=== PATIENT | female | born 1965 | race Caucasian/White ===

== ENCOUNTER 2025-05-12 09:14 | Outpatient (AMB) | payer MEDICAID, SELFPAY ==
--- NOTE | 2025-05-12 09:53 | ORTHONT_ITS ---
Vital signs 05/12/25 09:58 Height 1.68 m Height Method Stated Weight 86.211 kg Weight Measurement Method Standing Scale BMI 30.7 BP 133/80 H Blood Pressure Source Automatic Cuff Blood Pressure Location Left Upper Arm Position Sitting Respiration 18 Pulse 78 Pulse Source Monitor Temp 97.6 F Temp Source Temporal Artery Scan Pulse Oximetry (%) 97 Oxygen Delivery Method Room Air Med/Allergies Allergies & Medications Allergies No Known Allergies Allergy (Verified 05/12/25 09:59) Medication Reconciliation levothyroxine 112 mcg tablet 112 mcg PO QDAY 04/30/18 [History Confirmed 05/12/25] Exam Exam Patient is in no acute distress and is cooperative with the examination today. Breathing is nonlabored. Patient has a normal mood and affect. Bilateral extremities were evaluated and demonstrates sensation intact to light touch. Palpable pedal pulses are present. No significant edema is present. Bilateral hips were examined. The patient has no pain with log roll of the hips. Internal rotation to 30 degrees and external rotation to 30 degrees is painless. Negative FADIR. Right knee was examined today. The right knee is in reasonable alignment. Range of motion from 0-120 degrees. Knee is stable to varus and valgus as well as AP translation with <5mm. Patient has a negative McMurrays. There is no pain with patellofemoral compression and no crepitus noted. The knee is nontender to palpation. Left knee was examined today. The left knee is in valgus alignment. Range of motion from 0-115 degrees. Knee is stable to varus and valgus as well as AP translation with <5mm. Patient has a negative McMurrays. There is no pain with patellofemoral compression and no crepitus noted. The knee is tender to palpation laterally and anteriorly RESULTS Imaging - MRI of the left knee: 08/16/2024, Full thickness cartilage loss of the patella and femoral trochlea as well as a complex tear of the anterior horn of the lateral meniscus. Assessment and Plan Problem List (1) Arthritis of left knee: Status: Acute Plan: ASSESSMENT AND PLAN 1. Left knee pain: The patient has been experiencing left knee pain for 6 months. An MRI dated 08/16/2024 shows full-thickness cartilage loss of the patella and femoral trochlea, and a complex tear of the anterior horn of the lateral meniscus. She reports that the pain worsens with walking and has not had any injections or physical therapy. Due to her renal issues, meloxicam is not recommended. An injection will be administered to the left knee today to help alleviate the pain and inflammation. Bilateral knee x-rays have been ordered to further evaluate her condition. The patient was advised to continue using Tylenol for pain management and avoid NSAIDs due to her renal issues. The risks and benefits of the injection were discussed, including potential side effects such as infection, bleeding, and temporary increase in pain. She was informed that the goal of the injection is to reduce inflammation and provide pain relief. Lifestyle modifications such as avoiding activities that exacerbate the pain and considering physical therapy were recommended. Recommend knee cortisone injection as patient would like to proceed with conservative treatment at this time. The risks and benefits of the procedure were reviewed with the patient and patient gave verbal consent to continue with the procedure. Procedure: performed by Dr. Gavin Using sterile technique the left knee was thoroughly prepped with alcohol, and approximately 1 cc of Depo-Medrol 80mg/mL and 4 cc of 0.2% ropivacaine was injected without resistance into the medial tibial femoral joint space. The patient tolerated the procedure. Office Procedures GNS Level of Care Nursing/Assessment Patient Status: Initial/New Patient Nursing Assessment/Reassesment: Medication Reconciliation, Update PMH in EMR and Vital Signs Coordination of Care: Complex Care and Chronic Disease 1-5, Education Complex Pt/Fam, Consent,records obtained, informed consent, 1 Ins Authorization, Lab and Imaging orders, Results/Orders obtained and Staff clarify orders Special Needs: Language special needs New Patient Charge New Patient Point Assignment: 1124 New Patient Point Charge: SYBASE DEVELOPER Level 4 ([id number]) Surgical Proc/IM SQ injection Minor Surgical Procedure: Yes (LEFT KNEE INJECTION) Medication Given Medication Given Medication Given: Yes Documented Dose Given: 1 Route: Infiitration Medication Given Medication Given Medication Given: Yes Documented Dose Given: 4 Route: Infiitration Office Meds methylprednisolone acetate 80 mg/mL suspension for injection Performing Provider: Rolando Gavin MD Performing Location: [facility] Administered by: Rolando Gavin MD on 05/12/25 10:55 Dose Route Admin Location Dispensed Lot Number Expiration Date Pack age [facility] [employer] 80 mg intra-articular 1 mL [id number] 01/07/27 [address]-0 [id number] [employer] ropivacaine (PF) 2 mg/mL (0.2 %) injection solution Performing Provider: Rolando Gavin MD Performing Location: [facility] Administered by: Rolando Gavin MD on 05/12/25 10:55 Dose Route Admin Location Dispensed Lot Number Expiration Date Pack age NDC NDC [employer] Curator 20 mL Infiltration 20 mL [id number] 07/10/27 53148-205-40 [id number] [facility] Intake Visit Data Collection New Patient or Established: New Patient (never been to [facility]) Reason for Visit:: LEFT KNEE PAIN Seen by Clinical Staff ONLY (RN/MA): No Vat Skimmer Required: Yes PCP or OBGYN visit in last 3 months: Yes Hx Now: No Do You Feel Safe at Home: Yes Authorities Contacted: N/A Questionairres Past Medical History Past Medical History Have you ever been diagnosed with any of the following: Neurological Problems Seizures: No Cardiology Problems Congestive Heart Failure: No Respiratory Problems Chronic Obstructive Pulmonary Disease (COPD): No Genital/Urinary Problems Renal Disease: No Reproductive Problems Breast Cancer: Yes (left) Previous Pregnancies: Yes (3) Endocrine Problems Diabetes Mellitus Type 1: No Diabetes Mellitus Type 2: No Hypothyroidism: Yes Other Problems Blood Transfusions: No Blood Transfusion Reaction: No Anesthesia Reactions: Yes (slow to wake up) Chemotherapy: Yes Radiation Therapy: Yes Chicken Pox: Yes Subjective Visit Visit for: new patient and knee (LEFT) Immunization / Flu Flu Vaccine in the Last 12 Months: Yes Flu Vaccine Exclusion Criteria: Already Received History of Present Illness Chief complaint: LEFT KNEE PAIN Date of injury / onset of symptoms: 1 MAURICIO HISTORY OF PRESENT ILLNESS I, Rolando Gavin, have obtained verbal consent from the patient, to be recorded during this encounter which may include, but not limited to, medical history, examination, treatment plans, and relevant health information.? Patient was informed that recording will be read and reviewed by myself before inclusion in the medical chart. The patient is a 58-year-old female who presents for evaluation of left knee pain. She has been experiencing persistent left knee pain for the past year, which intensifies during ambulation. The pain is localized to the medial aspect of her knee and extends to her calf. She also reports occasional swelling in the affected area. She has not received any injections or undergone physical therapy for this condition. Her current analgesic regimen includes Tylenol. She has renal issues. She was last seen on 08/16/2024 for an MRI, which demonstrated full thickness cartilage loss of the patella and femoral trochlea as well as a complex tear of the anterior horn of the lateral meniscus. 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
[2025-05-12 09:58] VITALS: BP 133/80; PULSE 78; RESP 18; TEMP 36.4; O2SAT 97; BMI 30.7
--- NOTE | 2025-05-12 10:13 | XR_ITS ---
EXAMINATION: Bilateral knees 2 views Right lateral knee left lateral knee 2 views Bilateral Axuni single view TECHNIQUE: Bilateral AP knees standing single view, bilateral PA knees standing single view flexion Standing right lateral knee left lateral knee 2 views Bilateral Axuni single view total 5 views Date and time: May 12, 2025, 1025 hours INDICATIONS: Knee pain months FINDINGS: Moderate narrowing medial joint spaces Moderate narrowing lateral joint spaces Bilateral advanced narrowing patellofemoral joints No fractures Significant osteopenia IMPRESSION: Moderate narrowing medial lateral joint spaces Advanced narrowing patellofemoral joint
== END 2025-05-12 10:18 | disposition home or self-care (01) ==
PROVIDERS: Supervising Provider Orthopaedic Surgery Adult Reconstructive Orthopaedic Surgery; Visit Provider Orthopaedic Surgery Adult Reconstructive Orthopaedic Surgery
DX: M25.562 Pain in left knee (principal); M17.12 Unilateral primary osteoarthritis, left knee
CPT/HCPCS: 20610; 73564; 99204; J1010; J2795; G0463

== ENCOUNTER 2025-05-28 10:30 | Outpatient (AMB) | payer MEDICAID, SELFPAY ==
[2025-05-28 10:49] VITALS: BP 138/76; PULSE 76; RESP 18; TEMP 36.4; O2SAT 97
--- NOTE | 2025-05-28 10:49 | PD.ORTHCLVIS ---
Vital signs 05/28/25 10:49 Height 1.68 m Height Method Stated Weight 84.907 kg Weight Measurement Method Standing Scale BMI 30.0 BP 138/76 H Blood Pressure Source Automatic Cuff Blood Pressure Location Left Upper Arm Position Sitting Respiration 18 Pulse 76 Pulse Source Monitor Temp 97.6 F Temp Source Temporal Artery Scan Pulse Oximetry (%) 97 Oxygen Delivery Method Room Air Med/Allergies Allergies & Medications Allergies No Known Allergies Allergy (Verified 05/28/25 10:50) Medication Reconciliation levothyroxine 112 mcg tablet 112 mcg PO QDAY 04/30/18 [History Confirmed 05/28/25] Exam Exam Patient is in no acute distress and is cooperative with the examination today. Breathing is nonlabored. Patient has a normal mood and affect. Bilateral extremities were evaluated and demonstrates sensation intact to light touch. Palpable pedal pulses are present. No significant edema is present. Bilateral hips were examined. The patient has no pain with log roll of the hips. Internal rotation to 30 degrees and external rotation to 30 degrees is painless. Negative FADIR. Right knee was examined today. The right knee is in reasonable alignment. Range of motion from 0-120 degrees. Knee is stable to varus and valgus as well as AP translation with <5mm. Patient has a negative McMurrays. There is no pain with patellofemoral compression and no crepitus noted. The knee is nontender to palpation. Left knee was examined today. The left knee is in valgus alignment. Range of motion from 0-115 degrees. Knee is stable to varus and valgus as well as AP translation with <5mm. Patient has a negative McMurrays. There is no pain with patellofemoral compression and no crepitus noted. The knee is tender to palpation laterally and anteriorly RESULTS Imaging - MRI of the left knee: 08/16/2024, Full thickness cartilage loss of the patella and femoral trochlea as well as a complex tear of the anterior horn of the lateral meniscus. Assessment and Plan Problem List (1) Arthritis of left knee: Status: Acute Plan: ASSESSMENT AND PLAN 1. Left knee pain: Patient has pain of the right knee and like a cortisone injection of the right knee today. Recommend knee cortisone injection as patient would like to proceed with conservative treatment at this time. The risks and benefits of the procedure were reviewed with the patient and patient gave verbal consent to continue with the procedure. Procedure: performed by Dr. Gavin Using sterile technique the Right knee was thoroughly prepped with alcohol, and approximately 1 cc of Depo-Medrol 80mg/mL and 4 cc of 0.2% ropivacaine was injected without resistance into the medial tibial femoral joint space. The patient tolerated the procedure. Office Procedures GNS Level of Care Nursing/Assessment Patient Status: Established Patient Nursing Assessment/Reassesment: Medication Reconciliation, Update PMH in EMR and Vital Signs Coordination of Care: Complex Care and Chronic Disease 1-5, Education Complex Pt/Fam, Consent,records obtained, informed consent, Results/Orders obtained and Staff clarify orders Special Needs: Language special needs Established Patient Charge Established Patient Point Assignment: 95 Established Patient Point Charge: EP Level 3 (80-115) Surgical Proc/IM SQ injection Minor Surgical Procedure: Yes (RIGHT KNEE INJECTION) Medication Given Medication Given Medication Given: Yes Documented Dose Given: 1 Route: Infiitration Medication Given Medication Given Medication Given: Yes Documented Dose Given: 4 Route: Infiitration Office Meds methylprednisolone acetate 80 mg/mL suspension for injection Performing Provider: Rolando Gavin MD Performing Location: [facility] Administered by: Rolando Gavin MD on 05/28/25 11:50 Dose Route Admin Location Dispensed Lot Number Expiration Date Package [facility] [employer] 80 mg intra-articular KNEE 1 mL [id number] 02/08/27 [address]-5 [id number] [employer] ropivacaine (PF) 2 mg/mL (0.2 %) injection solution Performing Provider: Rolando Gavin MD Performing Location: [facility] Administered by: Rolando Gavin MD on 05/28/25 11:50 Dose Route Admin Location Dispensed Lot Number Expiration Date Package [facility] [employer] 20 mL Infiltration KNEE 20 mL [id number] 11/08/26 1394-9951-01 [id number] [facility] Intake Visit Data Collection New Patient or Established: Established Patient (seen at [facility] within 3 years) Reason for Visit:: LEFT KNEE PAIN Seen by Clinical Staff ONLY (RN/MA): No Health Information Technologist Required: Yes PCP or OBGYN visit in last 3 months: Yes Hx Now: No Do You Feel Safe at Home: Yes Authorities Contacted: N/A Questionairres Past Medical History Past Medical History Have you ever been diagnosed with any of the following: Neurological Problems Seizures: No Cardiology Problems Congestive Heart Failure: No Respiratory Problems Chronic Obstructive Pulmonary Disease (COPD): No Genital/Urinary Problems Renal Disease: No Reproductive Problems Breast Cancer: Yes (left) Previous Pregnancies: Yes (3) Endocrine Problems Diabetes Mellitus Type 1: No Diabetes Mellitus Type 2: No Hypothyroidism: Yes Other Problems Blood Transfusions: No Blood Transfusion Reaction: No Anesthesia Reactions: Yes (slow to wake up) Chemotherapy: Yes Radiation Therapy: Yes Chicken Pox: Yes Subjective Visit Visit for: follow up visit, knee and injections Immunization / Flu Flu Vaccine in the Last 12 Months: Yes Flu Vaccine Exclusion Criteria: Already Received History of Present Illness Chief complaint: LEFT KNEE PAIN Date of injury / onset of symptoms: 1 MAURICIO HISTORY OF PRESENT ILLNESS I, Rolando Gavin, have obtained verbal consent from the patient, to be recorded during this encounter which may include, but not limited to, medical history, examination, treatment plans, and relevant health information.? Patient was informed that recording will be read and reviewed by myself before inclusion in the medical chart. The patient is a 58-year-old female who presents for evaluation of left knee pain. She has been experiencing persistent left knee pain for the past year, which intensifies during ambulation. The pain is localized to the medial aspect of her knee and extends to her calf. She also reports occasional swelling in the affected area. She has not received any injections or undergone physical therapy for this condition. Her current analgesic regimen includes Tylenol. She has renal issues. She reports the right knee pain is bothering her at this time and she would like a cortisone injection for the side She was last seen on 08/16/2024 for an MRI, which demonstrated full thickness cartilage loss of the patella and femoral trochlea as well as a complex tear of the anterior horn of the lateral meniscus. 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
== END 2025-05-28 11:10 | disposition home or self-care (01) ==
LOC: HODSRG 10:30
PROVIDERS: Supervising Provider Orthopaedic Surgery Adult Reconstructive Orthopaedic Surgery; Visit Provider Orthopaedic Surgery Adult Reconstructive Orthopaedic Surgery
DX: M17.12 Unilateral primary osteoarthritis, left knee (principal)
CPT/HCPCS: 20610; 99213; J1010; J2795; G0463